=== PATIENT | female | born 1995 | race Two or more races ===

== ENCOUNTER 2019-11-07 00:04 | Emergency (ER) | payer OTHER ==
[~2019-11-07] VITALS: Ht 165.1 cm; Wt 126.6 kg
--- NOTE | 2019-11-07 00:10 | NUR ---
Dr Jain into eval patient into eval patient.
--- NOTE | 2019-11-07 00:20 | NUR ---
Patient walked into ER c/o left chest wall pain that started 1hr [employer]. Patient states pain started when she was driving her car describing pain as 7/10 east pain. States pain resolved upon arrival.
[2019-11-07] MEDS ORDERED: TOPI100T PO (00:26)
[2019-11-07] MEDS ORDERED: BUPR300T52 PO (00:26)
[2019-11-07] MEDS ORDERED: METF-440 PO (00:26)
[2019-11-07] MEDS ORDERED: ASPIRIN 81 MG TAB.CHEW PO ONE (00:30)
[2019-11-07] MEDS ORDERED: ASPIRIN 81 MG TAB.CHEW ONE (00:31)
[2019-11-07 00:44] LABS: BASOPHILS # (AUTO) 0.1 K/uL (0.0-8.0); EOSINOPHILS # (AUTO) 0.3 K/uL (0.0-0.7); EOSINOPHILS % (AUTO) 2.7 % (0.0-7.0); HEMATOCRIT 47.8 % (31.2-41.9); HEMOGLOBIN 15.7 g/dL (10.9-14.3); LYMPHOCYTES # (AUTO) 2.7 K/uL (20.0-40.0); LYMPHOCYTES % (AUTO) 21.2 % (20.5-51.5); MEAN CORPUSCULAR HEMOGLOBIN 27.2 uug (24.7-32.8); MEAN CORPUSCULAR HGB CONC 33 g/dL (32.3-35.6); MEAN CORPUSCULAR VOLUME 82.8 fL (75.5-95.3); MONOCYTES # (AUTO) 0.7 K/uL (2.0-10.0); MONOCYTES % (AUTO) 5.7 % (0.0-11.0); NEUTROPHILS % (AUTO) 69.4 % (38.5-71.5); PLATELET COUNT (AUTO) 366 K/uL (179-408); RED BLOOD CELL COUNT(AUTO) 5.77 MIL/uL (3.63-4.92); WHITE BLOOD COUNT (AUTO) 12.9 K/uL (3.8-11.8)
--- NOTE | 2019-11-07 00:47 | NUR ---
Lauri mcguire in ED - 11/07/19 at 0048 by [id number] Patient discharged to home in stable condition. Written and verbal after care instructions given. Patient verbalizes understanding of instructions. Stressed follow up or return to ER for worsening s/s.
[2019-11-07 01:46] LABS: CREATININE 0.8 mg/dL (0.6-1.3); POTASSIUM 4.3 mmol/L (3.5-5.1)
[2019-11-07 01:58] LABS: BILIRUBIN,DIRECT 0.1 mg/dL (0.0-0.2); BILIRUBIN,TOTAL 0.2 mg/dL (0.2-1.0); TOTAL PROTEIN, SERUM 7.6 g/dL (6.4-8.2)
--- NOTE | 2019-11-07 02:09 | NUR ---
Patient laying down on gurny with no distress noted.
[2019-11-07 03:57] VITALS: BP 128/70
--- NOTE | 2019-11-07 04:26 | NUR ---
Patient discharged to home in stable condition. Written and verbal after care instructions given. Patient verbalizes understanding of instructions. Stressed follow up or return to ER for worsening s/s.
== END 2019-11-07 04:27 | disposition home or self-care (01) ==
LOC: ER 00:10
DX: R07.9 Chest pain, unspecified (principal); F41.0 Panic disorder [episodic paroxysmal anxiety]; E11.9 Type 2 diabetes mellitus without complications; Z79.84 Long term (current) use of oral hypoglycemic drugs
CPT/HCPCS: 36415; 70030-TC; 71045; 85025; 93005; A4663

== ENCOUNTER 2019-12-16 01:43 | Emergency (ER) | payer OTHER ==
[~2019-12-16] VITALS: Ht 165.1 cm; Wt 120.2 kg
[~2019-12-16 01:43] MED LIST: BUPR300T52 PO; METF-440 PO; TOPI100T PO
[2019-12-16] MEDS ORDERED: IBUPROFEN 800 MG TABLET ONE (02:12)
[2019-12-16] MEDS ORDERED: IBUPROFEN 800 MG TABLET PO ONE (02:15)
[2019-12-16 02:20] VITALS: BP 103/67
== END 2019-12-16 02:21 | disposition home or self-care (01) ==
LOC: ER 01:49
DX: S13.9XXA Sprain of joints and ligaments of unspecified parts of neck, initial encounter (principal); V49.40XA Driver injured in collision with unspecified motor vehicles in traffic accident, initial encounter; Y92.410 Unspecified street and highway as the place of occurrence of the external cause; E11.9 Type 2 diabetes mellitus without complications; F41.9 Anxiety disorder, unspecified; Z79.84 Long term (current) use of oral hypoglycemic drugs; Z79.899 Other long term (current) drug therapy
CPT/HCPCS: A4663